=== PATIENT | male | born 1990 | race American Indian/Alaskan Native ===

== ENCOUNTER 2018-06-05 16:56 | Emergency (ER) | payer SELFPAY ==
[2018-06-05 17:44] VITALS: BP 143/94
== END 2018-06-05 19:58 | disposition left against medical advice (07) ==
LOC: ED 16:56
DX: E86.0 Dehydration (principal); Z53.21 Procedure and treatment not carried out due to patient leaving prior to being seen by health care provider
CPT/HCPCS: 82962